=== PATIENT | male | born 1980 | race Caucasian/White ===

== ENCOUNTER 2018-01-29 09:15 | Inpatient (IN) | payer OTHER ==
[2018-01-29 09:38] VITALS: BMI 23.1
[2018-01-29] MEDS ORDERED: FLU VACCINE QUAD 60 MCG/0.5 ML (MDV 18-19) IM ONE (11:05)
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
[2018-01-29] MEDS ORDERED: MENTHOL/PHENOL 1 EACH UD MM PRN (12:59)
[2018-01-29] MEDS ORDERED: MAGNESIUM HYDROX 2400MG/30ML ORAL SUSPENSION 30 ML CUP PO PRN (12:59)
[2018-01-29] MEDS ORDERED: ACETAMINOPHEN 325 MG TABLET (FP) PO PRN (12:59)
[2018-01-29] MEDS ORDERED: P-EPHED 60MG/TRIPROLIDI 2.5MG TABLET PO PRN (12:59)
[2018-01-29] MEDS ORDERED: MAGNESIUM CITRATE 300 ML BOTTLE PO PRN (12:59)
[2018-01-29] MEDS ORDERED: hydrOXYzine PAMOATE 25 MG CAPSULE (FP) PO PRN (12:59)
[2018-01-29] MEDS ORDERED: LOPERAMIDE HCL 2 MG CAPSULE PO PRN (12:59)
[2018-01-29] MEDS ORDERED: chlordiazePOXIDE 5 MG CAPSULE PO PRN (12:59)
[2018-01-29] MEDS ORDERED: MAG HYDROX/AL HYDROX/SIMETH 30 ML UNIT-DOSE CUP PO PRN (12:59)
[2018-01-29] MEDS ORDERED: HYDROCORTISONE 0.5% TOPICAL CREAM 30 GM TUBE TP PRN (13:23)
[2018-01-29] MEDS ORDERED: ALBUTEROL SO4 0.083% IH SOL 2.5 MG/3 ML VIAL.NEB. NEB PRN (13:23)
[2018-01-29 17:47] LABS: URINE APPEARANCE TURBID; URINE COLOR YELLOW; URINE GLUCOSE (UA) NEGATIVE (NEGATIVE); URINE KETONE NEGATIVE (NEGATIVE); URINE LEUK ESTERASE NEGATIVE (NEGATIVE); URINE NITRITE NEGATIVE (NEGATIVE)
[2018-01-29 17:48] LABS: URINE PROTEIN 2+ (NEGATIVE)
[2018-01-29 17:52] LABS: URINE MUCUS MANY
[2018-01-29] MEDS ORDERED: MELATONIN 5 MG TABLETS PO PRN (22:00)
[2018-01-29] MEDS: THIAMINE HCL 100 MG TABLET (FP) PO SCH (22:39)
[2018-01-29] MEDS: NAPROXEN 500 MG TABLET (FP) PO SCH (22:39)
[2018-01-29] MEDS: chlordiazePOXIDE HCL 25 MG CAPSULE PO SCH (22:39)
[2018-01-30] MEDS: chlordiazePOXIDE HCL 25 MG CAPSULE PO SCH ×3 (06:08→17:25)
[2018-01-30] MEDS: PRENATAL VITAMINS W/ FOLIC ACID TABLET (FP) PO SCH (10:06)
[2018-01-30] MEDS: NAPROXEN 500 MG TABLET (FP) PO SCH ×2 (10:06→22:05)
[2018-01-30] MEDS: guaiFENesin/D-METHORPHAN HB 10 ML UNIT-DOSE CUPS PO PRN ×2 (10:07→17:30)
--- NOTE | 2018-01-30 10:51 | PN ---
S CIWA - CIWA Score Nausea/Vomitin-No Nausea/No Vomiting Muscle Tremors: 4-Moderate,w/Arms Extend Anxiety: 4-Mod. Anxious/Guarded Agitation: 4-Moderately Restless Paroxysmal Sweats: 1-Minimal Palms Moist Orientation: 0-Oriented Tacttile Disturbances: 0-None Auditory Disturbances: 0-None Visual Disturbances: 0-None Headache: 0-None Present CIWA-Ar Total Score: 13 BHS Progress Note (SOAP) Subjective: IRRITABILITY, AGITATION,INTERMITTENT SLEEP. Objective: 01/30/18 10:47 Vital Signs 01/30/18 01/30/18 01/30/18 03:30 06:02 09:11 Temperature 97.4 F L 96.7 F L Pulse Rate 57 L 71 Respiratory 16 18 18 Rate Blood Pressure 98/55 L 108/76 Laboratory Tests 01/29/18 01/29/18 12:00 15:30 Urine Color Yellow Urine Appearance Turbid Urine pH 5.0 Ur Specific [place] 1.039 H Urine Protein 2+ H Urine Glucose (UA) Negative Urine Ketones Negative Urine Blood Negative Urine Nitrite Negative Urine Bilirubin 2.0 Urine Urobilinogen 2.0 Ur Leukocyte Esterase Negative Urine WBC (Auto) None Urine RBC (Auto) None Urine Mucus Many HIV 1&2 Antibody Screen Negative HIV P24 Antigen Negative Assessment: 01/30/18 10:47 WITHDRAWAL SX Plan: CONTINUE DETOX INCREASE PO FLUIDS
[2018-01-30 10:54] LABS: HEMATOCRIT 42.7 % (35.4-49); MCH 29.8 pg (25.7-33.7); MCHC 32.9 g/dl (32.0-35.9); MEAN CELL VOLUME 90.8 fl (80-96); MEAN PLT VOLUME 10.9 fl (7.5-11.1); PLATELET COUNT 173 K/MM3 (134-434); RDW 14.7 % (11.9-15.9); WHITE BLOOD COUNT 7.1 K/mm3 (4.0-10.0)
[2018-01-30 11:08] LABS: ALBUMIN 4.1 g/dl (3.4-5.0); ALK PHOS 112 U/L (45-117); ANION GAP 10 MMOL/L (8-16); BILIRUBIN,TOTAL 0.3 mg/dL (0.2-1); BLOOD UREA NITROGEN 11 mg/dL (7-18); CALCIUM 9.4 mg/dL (8.5-10.1); CHLORIDE 99 mmol/L (98-107); CO2 28 mmol/L (21-32); CREATININE 0.9 mg/dL (0.55-1.3); GLUCOSE,RANDOM 97 mg/dL (74-106); SGOT/AST 78 U/L (15-37); SGPT/ALT 63 U/L (13-61); SODIUM 136 mmol/L (136-145); TOT PROT 7.8 g/dl (6.4-8.2)
[2018-01-30] MEDS ORDERED: FLU VACCINE QUAD 60 MCG/0.5 ML (MDV 18-19) IM ONE (12:00)
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
--- NOTE | 2018-01-30 15:52 | EKG ---
Test Reason : Blood Pressure : / mmHG Vent. Rate : 069 BPM Atrial Rate : 069 BPM P-R Int : 118 ms QRS Dur : 084 ms QT Int : 378 ms P-R-T Axes : 033 000 -37 degrees QTc Int : 405 ms NORMAL SINUS RHYTHM NONSPECIFIC ST ABNORMALITY ABNORMAL ECG NO PREVIOUS ECGS AVAILABLE Confirmed by MD Haile, Nikolay ([id number]) on 01/30/2018 3:51:59 PM Referred By: Confirmed By:Nikolay Be MD
[2018-01-30] MEDS ORDERED: PNEUMOC 13-VAL CONJ-DIP CRM/PF 0.5 ML DISP.SYRIN IM ONE (18:00)
[2018-01-30] MEDS ORDERED: PNEUMOCOCCAL 23 VACCINE 0.5 ML VIAL IM ONE (18:00)
[2018-01-30] MEDS: THIAMINE HCL 100 MG TABLET (FP) PO SCH (22:04)
[2018-01-30] MEDS: QUEtiapine FUMARATE 100 MG TABLET (FP) PO SCH (22:05)
[2018-01-30] MEDS: chlordiazePOXIDE HCL 10 MG CAPSULE PO SCH (22:05)
[2018-01-31] MEDS: chlordiazePOXIDE HCL 10 MG CAPSULE PO SCH ×3 (06:32→17:24)
[2018-01-31] MEDS: PRENATAL VITAMINS W/ FOLIC ACID TABLET (FP) PO SCH (10:22)
[2018-01-31] MEDS: NAPROXEN 500 MG TABLET (FP) PO SCH ×2 (10:22→22:40)
--- NOTE | 2018-01-31 14:35 | PN ---
S CIWA - CIWA Score Nausea/Vomitin-Mild Nausea/No Vomiting Muscle Tremors: 4-Moderate,w/Arms Extend Anxiety: 4-Mod. Anxious/Guarded Agitation: 2 Paroxysmal Sweats: 2 Orientation: 0-Oriented Tacttile Disturbances: 0-None Auditory Disturbances: 0-None Visual Disturbances: 0-None Headache: 1-Very Mild CIWA-Ar Total Score: 14 BHS Progress Note (SOAP) Subjective: Anxious, interrupted sleep Objective: 01/31/18 14:33 Last Vital Signs Temp Pulse Resp BP Pulse Ox 98.2 F 80 18 114/80 01/31/18 09:16 01/31/18 13:45 01/31/18 13:45 01/31/18 13:45 Laboratory Tests 01/29/18 01/29/18 01/30/18 12:00 15:30 06:10 WBC 7.1 RBC 4.70 Hgb 14.0 Hct 42.7 MCV 90.8 MCH 29.8 MCHC 32.9 RDW 14.7 Plt Count 173 MPV 10.9 Sodium Potassium Chloride Carbon Dioxide Anion Gap BUN Creatinine Creat Clearance w eGFR Random Glucose Calcium Total Bilirubin AST ALT Alkaline Phosphatase Total Protein Albumin Urine Color Yellow Urine Appearance Turbid Urine pH 5.0 Ur Specific [place] 1.039 H Urine Protein 2+ H Urine Glucose (UA) Negative Urine Ketones Negative Urine Blood Negative Urine Nitrite Negative Urine Bilirubin 2.0 Urine Urobilinogen 2.0 Ur Leukocyte Esterase Negative Urine WBC (Auto) None Urine RBC (Auto) None Urine Mucus Many RPR Titer HIV 1&2 Antibody Screen Negative HIV P24 Antigen Negative 01/30/18 01/30/18 06:10 06:10 WBC RBC Hgb Hct MCV MCH MCHC RDW Plt Count MPV Sodium 136 Potassium 4.0 Chloride 99 Carbon Dioxide 28 Anion Gap 10 BUN 11 Creatinine 0.9 Creat Clearance w eGFR > 60 Random Glucose 97 Calcium 9.4 Total Bilirubin 0.3 AST 78 H ALT 63 H Alkaline Phosphatase 112 Total Protein 7.8 Albumin 4.1 Urine Color Urine Appearance Urine pH Ur Specific [place] Urine Protein Urine Glucose (UA) Urine Ketones Urine Blood Urine Nitrite Urine Bilirubin Urine Urobilinogen Ur Leukocyte Esterase Urine WBC (Auto) Urine RBC (Auto) Urine Mucus RPR Titer Nonreactive HIV 1&2 Antibody Screen HIV P24 Antigen Labs reviewed: abnormal UA Assessment: 01/31/18 14:34 Withdrawal symptoms Noted with abnormal UA Plan: Continue detox Abnormal UA: encouraged PO water hydration, repeat UA
[2018-01-31] MEDS: THIAMINE HCL 100 MG TABLET (FP) PO SCH (22:40)
[2018-01-31] MEDS: QUEtiapine FUMARATE 100 MG TABLET (FP) PO SCH (22:41)
[2018-01-31] MEDS: chlordiazePOXIDE 5 MG CAPSULE PO SCH (22:41)
[2018-02-01] MEDS: chlordiazePOXIDE 5 MG CAPSULE PO SCH (05:38)
[2018-02-01 06:52] VITALS: BP 93/62; PULSE 67; TEMP 97.2
--- NOTE | 2018-02-01 10:33 | DS ---
[facility] Summary Admission Date: 01/29/18 Discharge Date: 02/01/18 - History Present History: Alcohol Dependence, Cannabis Dependence, Cocaine Dependence, Opioid Dependence - Physical Exam Results Vital Signs: Vital Signs Temperature 97.2 F L 02/01/18 06:51 Pulse Rate 67 02/01/18 06:51 Respiratory Rate 18 02/01/18 06:51 Blood Pressure 93/62 02/01/18 06:51 O2 Sat by Pulse Oximetry (%) Pertinent Admission Physical Exam Findings: Withdrawal symptoms Laboratory Tests 01/29/18 01/29/18 01/30/18 12:00 15:30 06:10 WBC 7.1 RBC 4.70 Hgb 14.0 Hct 42.7 MCV 90.8 MCH 29.8 MCHC 32.9 RDW 14.7 Plt Count 173 MPV 10.9 Sodium Potassium Chloride Carbon Dioxide Anion Gap BUN Creatinine Creat Clearance w eGFR Random Glucose Calcium Total Bilirubin AST ALT Alkaline Phosphatase Total Protein Albumin Urine Color Yellow Urine Appearance Turbid Urine pH 5.0 Ur Specific [place] 1.039 H Urine Protein 2+ H Urine Glucose (UA) Negative Urine Ketones Negative Urine Blood Negative Urine Nitrite Negative Urine Bilirubin 2.0 Urine Urobilinogen 2.0 Ur Leukocyte Esterase Negative Urine WBC (Auto) None Urine RBC (Auto) None Urine Mucus Many RPR Titer HIV 1&2 Antibody Screen Negative HIV P24 Antigen Negative 01/30/18 01/30/18 06:10 06:10 WBC RBC Hgb Hct MCV MCH MCHC RDW Plt Count MPV Sodium 136 Potassium 4.0 Chloride 99 Carbon Dioxide 28 Anion Gap 10 BUN 11 Creatinine 0.9 Creat Clearance w eGFR > 60 Random Glucose 97 Calcium 9.4 Total Bilirubin 0.3 AST 78 H ALT 63 H Alkaline Phosphatase 112 Total Protein 7.8 Albumin 4.1 Urine Color Urine Appearance Urine pH Ur Specific [place] Urine Protein Urine Glucose (UA) Urine Ketones Urine Blood Urine Nitrite Urine Bilirubin Urine Urobilinogen Ur Leukocyte Esterase Urine WBC (Auto) Urine RBC (Auto) Urine Mucus RPR Titer Nonreactive HIV 1&2 Antibody Screen HIV P24 Antigen Labs reviewed: abnormal UA (follow up with PCP in 1-2 weeks for abnormal lab result) - Treatment Hospital Course: Detox Protocol Followed, Detoxed Safely, Responded well, Discharged Condition Good - Medication Discharge Medications: Ambulatory Orders Naproxen 500 mg PO BID 01/29/18 - Diagnosis (1) Abnormal finding on urinalysis Status: Acute (2) Alcohol dependence with uncomplicated withdrawal Status: Acute (3) Cannabis dependence, uncomplicated Status: Chronic (4) Cocaine dependence, uncomplicated Status: Chronic (5) Methamphetamine abuse Status: Chronic (6) Nicotine dependence Status: Chronic (7) Substance induced mood disorder Status: Acute (8) Schizophrenia Status: Chronic - AMA Did Patient Leave Against Medical Advice: No (F/U with your PCP within 1-2 weeks )
[2018-02-01 16:42] LABS: URINE APPEARANCE SLCLOUDY; URINE BILIRUBIN NEGATIVE (<2.0 mg/dL); URINE COLOR YELLOW; URINE GLUCOSE (UA) NEGATIVE (NEGATIVE); URINE KETONE NEGATIVE (NEGATIVE); URINE LEUK ESTERASE NEGATIVE (NEGATIVE); URINE NITRITE NEGATIVE (NEGATIVE); URINE PROTEIN NEGATIVE (NEGATIVE); URINE UROBILINOGEN NEGATIVE mg/dL (0.2-1.0)
== END 2018-02-01 09:15 | disposition home or self-care (01) | DRG 773 ==
LOC: YASAS 09:15 → Y3N 13:13
PROC: HZ2ZZZZ Detoxification Services for Substance Abuse Treatment (ICD-10-PCS; principal; 2018-01-29)
DX: F10.230 Alcohol dependence with withdrawal, uncomplicated (principal); F11.23 Opioid dependence with withdrawal; F14.20 Cocaine dependence, uncomplicated; F12.20 Cannabis dependence, uncomplicated; F15.10 Other stimulant abuse, uncomplicated; F17.210 Nicotine dependence, cigarettes, uncomplicated; F20.9 Schizophrenia, unspecified; F19.24 Other psychoactive substance dependence with psychoactive substance-induced mood disorder; F31.9 Bipolar disorder, unspecified; F98.8 Other specified behavioral and emotional disorders with onset usually occurring in childhood and adolescence; R82.90 Unspecified abnormal findings in urine; Z91.19 Patient's noncompliance with other medical treatment and regimen; Z59.0 Homelessness
CPT/HCPCS: 36415; 80053; 81003; 81015; 85027; 86593; 87389; 90688; 90732; 93005; 93010; G0008; G0009

== ENCOUNTER 2018-03-15 08:52 | Inpatient (IN) | payer OTHER ==
[2018-03-15 09:33] VITALS: BMI 24.4
--- NOTE | 2018-03-15 09:38 | HP ---
CIWA Score - CIWA Score Nausea/Vomitin Muscle Tremors: 2 Anxiety: 2 Agitation: 2 Paroxysmal Sweats: 1-Minimal Palms Moist Orientation: 0-Oriented Tacttile Disturbances: 1-Very Mild Itch/Numbness Auditory Disturbances: 1-Very Mild Visual Disturbances: 0-None Headache: 2-Mild CIWA-Ar Total Score: 13 CIWA Score Nausea/Vomitin Muscle Tremors: 2 Anxiety: 2 Agitation: 2 Paroxysmal Sweats: 1-Minimal Palms Moist Orientation: 0-Oriented Tacttile Disturbances: 1-Very Mild Itch/Numbness Auditory Disturbances: 1-Very Mild Visual Disturbances: 0-None Headache: 2-Mild CIWA-Ar Total Score: 13 - Admission Criteria Patient presents the following: CIWA greater than 12, Acute intervention needed for co-occurring med or psych disorder Admission Criteria Met: Admission criteria met Admission ROS BHS - HPI Chief Complaint: i need help to stop drinkong alcohol,cocaine and marijuana Allergies/Adverse Reactions: Allergies Allergy/AdvReac Type Severity Reaction Status Date / Time shrimp Allergy Severe Hives Verified 03/15/18 10:03 house dust mite Allergy Mild Rash Verified 03/15/18 10:03 COTTON Allergy Mild Rash Uncoded 03/15/18 10:03 PARKER Allergy Mild Rash Uncoded 03/15/18 10:03 NKDA Allergy Uncoded 03/15/18 10:04 History of Present Illness: this 37 years old male with alcohol,cocaine and marijuana dependence,seeking detox,withdrawal symptom,last detox 01/29/19 to 02/01/18 syncope nicotine dependence schizophrenia weight loss longest period of sobriety 2 months Exam Limitations: No Limitations - Ebola screening Have you traveled outside of the country in the last 21 days: No Have you had contact with anyone from an Ebola affected area: No - Review of Systems Constitutional: Loss of Appetite, Malaise, Night Sweats, Changes in sleep, Weakness, Unintentional Wgt. Loss EENT: reports: Nose Congestion Respiratory: reports: No Symptoms reported Cardiac: reports: No Symptoms Reported GI: reports: Nausea, Poor Appetite, Abdominal cramping : reports: No Symptoms Reported Musculoskeletal: reports: Back Pain, Muscle Pain Integumentary: reports: Dryness Neuro: reports: Tremors Endocrine: reports: No Symptoms Reported Hematology: reports: No Symptoms Reported Psychiatric: reports: No Sypmtoms Reported, Judgement Intact, Mood/Affect Appropiate, Orientated x3 (schzophrenia) Patient History - Patient Medical History Hx Anemia: No Hx Asthma: No Hx Chronic Obstructive Pulmonary Disease (COPD): No Hx Cancer: No Hx Cardiac Disorders: No Hx Congestive Heart Failure: No Hx Hypertension: No Hx Hypercholesterolemia: No Hx Pacemaker: No HX Cerebrovascular Accident: No Hx Seizures: No Hx Diabetes: No Hx Gastrointestinal Disorders: No Hx Genitourinary Disorders: No Hx Sexually Transmitted Disorders: No Hx Renal Disease (ESRD): No Hx Thyroid Disease: No Hx Human Immunodeficiency Virus (HIV): No (last 01/26 negative) Hx Hepatitis C: No Hx Depression: Yes Hx Suicide Attempt: No Hx Bipolar Disorder: No Hx Schizophrenia: Yes (non compliance,no med) Other Medical History: no suicidal,no homicidal - Patient Surgical History Past Surgical History: Yes Hx Neurologic Surgery: No Hx Cataract Extraction: No Hx Cardiac Surgery: No Hx Lung Surgery: No Hx Breast Surgery: No Hx Breast Biopsy: No Hx Abdominal Surgery: No Hx Appendectomy: No Hx Cholecystectomy: No Hx Genitourinary Surgery: No Hx Section: No Hx Orthopedic Surgery: Yes (RIGHT ANKLE FRACTURE, HEEL, TOES #2,3, AND 5 Fracture. LEFT ELBOW FRACTURE.) Other Surgical History: fx of left elbow at age of 9 years Anesthesia Reaction: No - PPD History Previous Implant?: Yes Documented Results: Negative w/proof Implanted On Prior [facility] Admission?: Yes Date: 01/31/18 Results: 0 mm PPD to be Administered?: No - Smoking Cessation Smoking history: Current every day smoker Have you smoked in the past 12 months: Yes Aproximately how many cigarettes per day: 11 Hx Chewing Tobacco Use: No Initiated information on smoking cessation: Yes 'Breaking Loose' booklet given: 03/15/18 - Substance & Tx. History Hx Alcohol Use: Yes Hx Substance Use: Yes Substance Use Type: Alcohol, Cocaine, Marijuana Hx Substance Use Treatment: Yes ([facility] 01/29/18 to 02/01/18) - Substances Abused Alcohol Route: Oral Frequency: Daily Amount used: 3 pints of vodka/16 ozs of beer Age of first use: 16 Date of Last Use: 03/15/18 Marijuana/Hashish Route: Smoking Frequency: Daily Amount used: 20$ Age of first use: 11 Date of Last Use: 03/14/18 Cocaine Route: Inhalation Frequency: 3-6 times per week Amount used: 50$ Age of first use: 16 Date of Last Use: 03/13/18 Family Disease History - Family Disease History Family Disease History: CA: Grandparent (grandmother brain tumor , GF DM ), Other: Father (AIDS), Mother (mental health issues , AIDS ) Admission Physical Exam [facility] - Vital Signs Vital Signs: Vital Signs Temperature 97.7 F 03/15/18 09:32 Pulse Rate 78 03/15/18 09:32 Respiratory Rate 20 03/15/18 09:32 Blood Pressure 133/84 03/15/18 09:32 O2 Sat by Pulse Oximetry (%) - Physical General Appearance: Yes: Moderate Distress, Tremorous, Irritable, Sweating, Anxious HEENTM: Yes: Normal ENT Inspection, LALO Respiratory: Yes: Within Normal Limits, Lungs Clear, Normal Breath Sounds Neck: Yes: Within Normal Limits, Supple, Trachea in good position Breast: Yes: Within Normal Limits Cardiology: Yes: Within Normal Limits, Regular Rhythm, Regular Rate, S1, S2 Abdominal: Yes: Within Normal Limits, Normal Bowel Sounds, Non Tender, Flat, Soft Genitourinary: Yes: Within Normal Limits Back: Yes: Within Normal Limits, Normal Inspection, Muscle Spasm Extremities: Yes: Within Normal Limits, Tremors Neurological: Yes: merchandiser seasonal II-XII NML intact, Fully Oriented, Alert, Motor Strength 5/5 Integumentary: Yes: Dry Lymphatic: Yes: Within Normal Limits - Diagnostic (1) Alcohol dependence with uncomplicated withdrawal Current Visit: No Status: Acute (2) Cannabis dependence, uncomplicated Current Visit: No Status: Chronic (3) Cocaine dependence, uncomplicated Current Visit: No Status: Chronic (4) Nicotine dependence Current Visit: No Status: Chronic (5) Schizophrenia Current Visit: No Status: Chronic Cleared for Admission S - Detox or Rehab S Level of Care: Medically Managed Detox Regimen/Protocol: Librium BHS Breath Alcohol Content Breath Alcohol Content: 0
[2018-03-15] MEDS ORDERED: LOPERAMIDE HCL 2 MG CAPSULE PO PRN (09:53)
[2018-03-15] MEDS ORDERED: P-EPHED 60MG/TRIPROLIDI 2.5MG TABLET PO PRN (09:53)
[2018-03-15] MEDS ORDERED: ACETAMINOPHEN 325 MG TABLET (FP) PO PRN (09:53)
[2018-03-15] MEDS ORDERED: guaiFENesin/D-METHORPHAN HB 10 ML UNIT-DOSE CUPS PO PRN (09:53)
[2018-03-15] MEDS ORDERED: IBUPROFEN 400 MG TABLET (FP) PO PRN (09:53)
[2018-03-15] MEDS ORDERED: MAGNESIUM CITRATE 300 ML BOTTLE PO PRN (09:53)
[2018-03-15] MEDS ORDERED: MENTHOL/PHENOL 1 EACH UD MM PRN (09:53)
[2018-03-15] MEDS ORDERED: MAG HYDROX/AL HYDROX/SIMETH 30 ML UNIT-DOSE CUP PO PRN (09:53)
[2018-03-15] MEDS ORDERED: hydrOXYzine PAMOATE 25 MG CAPSULE (FP) PO PRN (09:53)
[2018-03-15] MEDS ORDERED: MAGNESIUM HYDROX 2400MG/30ML ORAL SUSPENSION 30 ML CUP PO PRN (09:53)
[2018-03-15] MEDS ORDERED: chlordiazePOXIDE HCL 25 MG CAPSULE PO PRN (09:53)
--- NOTE | 2018-03-15 11:32 | CONSULT ---
[facility] Psychiatric Consult - Data Date of interview: 03/15/18 Admission source: [facility] Identifying data: this 37 years old male with alcohol,cocaine and marijuana dependence,seeking detox,withdrawal symptom,last detox 01/29/19 to 02/01/18. syncope. nicotine dependence. schizophrenia. weight loss. longest period of sobriety 2 months Substance Abuse History: Smoking history: Current every day smoker. Have you smoked in the past 12 months: Yes. Aproximately how many cigarettes per day: 11. Hx Chewing Tobacco Use: No. Initiated information on smoking cessation: Yes. 'Breaking Loose' booklet given: 03/15/18. - Substance & Tx. History. Hx Alcohol Use: Yes. Hx Substance Use: Yes. Substance Use Type: Alcohol, Cocaine , Marijuana. Hx Substance Use Treatment: Yes ([facility] 01/29/18 to 02/01/18). - Substances Abused. Alcohol. Route: Oral. Frequency: Daily. Amount used: 3 pints of vodka/16 ozs of beer. Age of first use: 16. Date of Last Use: 03/15. Marijuana/Hashish. Route: Smoking. Frequency: Daily. Amount used: 20 $. Age of first use: 11. Date of Last Use: 03/14/18. Cocaine. Route: Inhalation. Frequency: 3-6 times per week. Amount used: 50$. Age of first use : 16. Date of Last Use: 03/13/18 Medical History: Weight loss history Psychiatric History: Patient reports to carry Schizophrenia and has been stable on Haldol Decanoate im , once a nmonth, unknown dose, reports prior to injections long time satble on Haldol 5mg po bid. Denies suicidal, homicidal history. Reports mopst recent psychiatric adission a mopnth ago at [facility]. Currently on: [id number] po bid. Cogentin 1mg po bid. Physical/Sexual Abuse/Trauma History: Denies Additional Comment: [id number] po bid. Cogentin 1mg po bid Mental Status Exam - Mental Status Exam Additional Comments: [id number] po bid. Cogentin 1mg po bid Psychiatric Findings - Problem List ([place] 1, 2,3) (1) Abnormal finding on urinalysis Current Visit: No Status: Acute (2) Alcohol dependence with uncomplicated withdrawal Current Visit: No Status: Acute (3) Alcohol withdrawal Current Visit: No Status: Acute Qualifiers: Complication of substance-induced condition: uncomplicated Qualified Code(s ): F10.230 - Alcohol dependence with withdrawal, uncomplicated (4) Non-compliance with treatment Current Visit: No Status: Acute Comment: No psychiatric OPD care. (5) Substance induced mood disorder Current Visit: No Status: Acute (6) Cannabis dependence, uncomplicated Current Visit: No Status: Chronic (7) Cocaine dependence, uncomplicated Current Visit: No Status: Chronic (8) Methamphetamine abuse Current Visit: No Status: Chronic (9) Nicotine dependence Current Visit: No Status: Chronic (10) Schizophrenia Current Visit: No Status: Chronic - Initial Treatment Plan Initial Treatment Plan: [id number] po bid. Cogentin 1mg po bid
--- NOTE | 2018-03-15 12:00 | EKG ---
Test Reason : Blood Pressure : / mmHG Vent. Rate : 072 BPM Atrial Rate : 072 BPM P-R Int : 132 ms QRS Dur : 096 ms QT Int : 392 ms P-R-T Axes : 062 -20 019 degrees QTc Int : 429 ms NORMAL SINUS RHYTHM NORMAL ECG WHEN COMPARED WITH ECG OF 29-JAN-2018 13:51, Confirmed by SAMMI OCHOA MD ([id number]) on 03/15/2018 11:59:52 AM Referred By: Confirmed By:SAMMI OCHOA MD
[2018-03-15] MEDS: chlordiazePOXIDE HCL 25 MG CAPSULE PO SCH ×3 (12:11→23:54)
[2018-03-15] MEDS: PRENATAL VITAMINS W/ FOLIC ACID TABLET (FP) PO SCH (12:11)
[2018-03-15] MEDS ORDERED: HALOPERIDOL 5 MG TABLET (FP) PO PRN (13:34)
[2018-03-15 17:43] LABS: URINE APPEARANCE CLEAR; URINE BILIRUBIN NEGATIVE (<2.0 mg/dL); URINE COLOR STRAW; URINE GLUCOSE (UA) NEGATIVE (NEGATIVE); URINE KETONE NEGATIVE (NEGATIVE); URINE LEUK ESTERASE NEGATIVE (NEGATIVE); URINE NITRITE NEGATIVE (NEGATIVE); URINE PROTEIN NEGATIVE (NEGATIVE); URINE UROBILINOGEN NEGATIVE mg/dL (0.2-1.0)
[2018-03-15] MEDS ORDERED: MELATONIN 5 MG TABLETS PO PRN (22:00)
[2018-03-15] MEDS: BENZTROPINE MESYLATE 1 MG TABLET (FP) PO SCH (23:54)
[2018-03-15] MEDS: THIAMINE HCL 100 MG TABLET (FP) PO SCH (23:54)
[2018-03-15] MEDS: HALOPERIDOL 5 MG TABLET (FP) PO SCH (23:54)
[2018-03-16] MEDS: chlordiazePOXIDE HCL 25 MG CAPSULE PO SCH ×4 (06:03→23:12)
[2018-03-16] MEDS: PRENATAL VITAMINS W/ FOLIC ACID TABLET (FP) PO SCH (10:43)
[2018-03-16] MEDS: HALOPERIDOL 5 MG TABLET (FP) PO SCH ×2 (10:43→23:12)
[2018-03-16] MEDS: BENZTROPINE MESYLATE 1 MG TABLET (FP) PO SCH ×2 (10:43→23:11)
--- NOTE | 2018-03-16 11:17 | PN ---
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 and counselor Objective: 03/16/18 11:18 Vital Signs Temperature 97.5 F L 03/16/18 09:40 Pulse Rate 81 03/16/18 09:40 Respiratory Rate 18 03/16/18 09:40 Blood Pressure 120/71 03/16/18 09:40 O2 Sat by Pulse Oximetry (%) Laboratory Last Values POC Glucometer 91 UNITS (80-120) 03/15/18 16:20 Urine Color Straw 03/15/18 16:00 Urine Appearance Clear 03/15/18 16:00 Urine pH 7.0 (5.0-8.0) D 03/15/18 16:00 Ur Specific [place] 1.006 (1.010-1.035) L 03/15/18 16:00 Urine Protein Negative (NEGATIVE) 03/15/18 16:00 Urine Glucose (UA) Negative (NEGATIVE) 03/15/18 16:00 Urine Ketones Negative (NEGATIVE) 03/15/18 16:00 Urine Blood Negative (NEGATIVE) 03/15/18 16:00 Urine Nitrite Negative (NEGATIVE) 03/15/18 16:00 Urine Bilirubin Negative (<2.0 mg/dL) 03/15/18 16:00 Urine Urobilinogen Negative mg/dL (0.2-1.0) 03/15/18 16:00 Ur Leukocyte Esterase Negative (NEGATIVE) 03/15/18 16:00 lab noted Assessment: 03/16/18 11:19 withdrawal sx Plan: continue detox
[2018-03-16 11:35] LABS: HEMATOCRIT 41.7 % (35.4-49); HEMOGLOBIN 13.4 GM/dL (11.7-16.9); MCH 29.6 pg (25.7-33.7); MCHC 32.1 g/dl (32.0-35.9); MEAN CELL VOLUME 92.2 fl (80-96); MEAN PLT VOLUME 10.6 fl (7.5-11.1); PLATELET COUNT 222 K/MM3 (134-434); RBC 4.52 M/mm3 (4.00-5.60)
[2018-03-16 11:58] LABS: ALBUMIN 4.1 g/dl (3.4-5.0); ALK PHOS 104 U/L (45-117); ANION GAP 7 MMOL/L (8-16); BILIRUBIN,TOTAL 0.5 mg/dL (0.2-1); BLOOD UREA NITROGEN 9 mg/dL (7-18); CALCIUM 9.1 mg/dL (8.5-10.1); CHLORIDE 103 mmol/L (98-107); CO2 27 mmol/L (21-32); CREATININE 0.7 mg/dL (0.55-1.3); GLUCOSE,RANDOM 70 mg/dL (74-106); POTASSIUM 5.2 mmol/L (3.5-5.1); SGOT/AST 64 U/L (15-37); SGPT/ALT 79 U/L (13-61); SODIUM 137 mmol/L (136-145); TOT PROT 7.5 g/dl (6.4-8.2)
[2018-03-16] MEDS: THIAMINE HCL 100 MG TABLET (FP) PO SCH (23:12)
[2018-03-17] MEDS: chlordiazePOXIDE HCL 25 MG CAPSULE PO SCH (05:41)
[2018-03-17 07:58] VITALS: BP 123/67; PULSE 71; TEMP 197.9
[2018-03-17] MEDS ORDERED: chlordiazePOXIDE 5 MG CAPSULE PO SCH (11:00)
--- NOTE | 2018-03-17 12:09 | DS ---
[facility] Detox Discharge Summary Admission Date: 03/15/18 Discharge Date: 03/17/18 - History Present History: Alcohol Dependence Additional Comments: 37 years old male admitted on 03/15/18 for alcohol withdrawal sx insists to leave the detox unit today with his "friends" alert oriented x 3 no acute distress denies suicidal denies homocidal no self destructive behavior aftercare [facility] patient agrees to consider [facility] after "things" settle down - Physical Exam Results Vital Signs: Vital Signs Temperature 197.9 F H 03/17/18 07:58 Pulse Rate 71 03/17/18 07:58 Respiratory Rate 18 03/17/18 07:58 Blood Pressure 123/67 03/17/18 07:58 O2 Sat by Pulse Oximetry (%) Pertinent Admission Physical Exam Findings: alcohol detox Vital Signs Temperature 197.9 F H 03/17/18 07:58 Pulse Rate 71 03/17/18 07:58 Respiratory Rate 18 03/17/18 07:58 Blood Pressure 123/67 03/17/18 07:58 O2 Sat by Pulse Oximetry (%) Laboratory Last Values WBC 6.0 K/mm3 (4.0-10.0) 03/16/18 06:00 RBC 4.52 M/mm3 (4.00-5.60) 03/16/18 06:00 Hgb 13.4 GM/dL (11.7-16.9) 03/16/18 06:00 Hct 41.7 % (35.4-49) 03/16/18 06:00 MCV 92.2 fl (80-96) 03/16/18 06:00 MCH 29.6 pg (25.7-33.7) 03/16/18 06:00 MCHC 32.1 g/dl (32.0-35.9) 03/16/18 06:00 RDW 17.0 % (11.9-15.9) H 03/16/18 06:00 Plt Count 222 K/MM3 (134-434) D 03/16/18 06:00 MPV 10.6 fl (7.5-11.1) 03/16/18 06:00 Sodium 137 mmol/L (136-145) 03/16/18 06:00 Potassium 5.2 mmol/L (3.5-5.1) H 03/16/18 06:00 Chloride 103 mmol/L (98-107) 03/16/18 06:00 Carbon Dioxide 27 mmol/L (21-32) 03/16/18 06:00 Anion Gap 7 MMOL/L (8-16) L 03/16/18 06:00 BUN 9 mg/dL (7-18) 03/16/18 06:00 Creatinine 0.7 mg/dL (0.55-1.3) 03/16/18 06:00 Creat Clearance w eGFR > 60 (>60) 03/16/18 06:00 POC Glucometer 91 UNITS (80-120) 03/15/18 16:20 Random Glucose 70 mg/dL (74-106) L 03/16/18 06:00 Calcium 9.1 mg/dL (8.5-10.1) 03/16/18 06:00 Total Bilirubin 0.5 mg/dL (0.2-1) 03/16/18 06:00 AST 64 U/L (15-37) H 03/16/18 06:00 ALT 79 U/L (13-61) H 03/16/18 06:00 Alkaline Phosphatase 104 U/L (45-117) 03/16/18 06:00 Total Protein 7.5 g/dl (6.4-8.2) 03/16/18 06:00 Albumin 4.1 g/dl (3.4-5.0) 03/16/18 06:00 Urine Color Straw 03/15/18 16:00 Urine Appearance Clear 03/15/18 16:00 Urine pH 7.0 (5.0-8.0) D 03/15/18 16:00 Ur Specific [place] 1.006 (1.010-1.035) L 03/15/18 16:00 Urine Protein Negative (NEGATIVE) 03/15/18 16:00 Urine Glucose (UA) Negative (NEGATIVE) 03/15/18 16:00 Urine Ketones Negative (NEGATIVE) 03/15/18 16:00 Urine Blood Negative (NEGATIVE) 03/15/18 16:00 Urine Nitrite Negative (NEGATIVE) 03/15/18 16:00 Urine Bilirubin Negative (<2.0 mg/dL) 03/15/18 16:00 Urine Urobilinogen Negative mg/dL (0.2-1.0) 03/15/18 16:00 Ur Leukocyte Esterase Negative (NEGATIVE) 03/15/18 16:00 RPR Titer Nonreactive (NONREACTIVE) 03/16/18 06:00 lab noted - Treatment Hospital Course: Detox Protocol Followed, Responded well Patient has Accepted a Rehab Referral to: [facility] - Medication Discharge Medications: Ambulatory Orders Unobtainable 03/15/18 - Diagnosis (1) Alcohol dependence with uncomplicated withdrawal Status: Acute (2) Substance induced mood disorder Status: Suspected (3) Weight loss Status: Acute (4) Nicotine dependence Status: Acute Qualifiers: Nicotine product type: cigarettes Substance use status: in withdrawal Qualified Code(s): F17.213 - Nicotine dependence, cigarettes, with withdrawal - AMA Did Patient Leave Against Medical Advice: Yes
[2018-03-18] MEDS ORDERED: chlordiazePOXIDE HCL 10 MG CAPSULE PO SCH (11:00)
== END 2018-03-17 09:22 | disposition left against medical advice (07) | DRG 770 ==
LOC: YASAS 08:52 → Y6N 09:59
PROC: HZ2ZZZZ Detoxification Services for Substance Abuse Treatment (ICD-10-PCS; principal; 2018-03-15)
DX: F10.230 Alcohol dependence with withdrawal, uncomplicated (principal); F14.20 Cocaine dependence, uncomplicated; F12.20 Cannabis dependence, uncomplicated; F15.10 Other stimulant abuse, uncomplicated; F17.213 Nicotine dependence, cigarettes, with withdrawal; F19.24 Other psychoactive substance dependence with psychoactive substance-induced mood disorder; F20.9 Schizophrenia, unspecified; R82.79 Other abnormal findings on microbiological examination of urine; Z91.14 Patient's other noncompliance with medication regimen; Z91.19 Patient's noncompliance with other medical treatment and regimen; Z91.013 Allergy to seafood; Z91.048 Other nonmedicinal substance allergy status
CPT/HCPCS: 36415; 80053; 81003; 82962; 85027; 86593; 93005; 93010

== ENCOUNTER 2019-06-29 08:23 | Inpatient (IN) | payer OTHER ==
--- NOTE | 2019-06-29 09:06 | BHS.RME ---
Substance Use & Tx History - Substance Use History Alcohol Substance amount: 1-2 beers Frequency of use: Daily Substance route: Oral Date of Last Use: 06/29/19 Cannabis (Synthetic) Substance amount: 1-3 blunts Frequency of use: Daily Substance route: Smoking Date of Last Use: 06/28/19 Cocaine (Crack) Substance amount: 5 bags Frequency of use: Daily Substance route: Smoking Date of Last Use: 06/28/19 Cannabis Substance amount: 2-3 blunts Frequency of use: Daily Substance route: Smoking Date of Last Use: 06/28/19 - Last Treatment Date of last treatment: 2018 Treatment type: Substance Use Disorder (DIANE) Where was last treatment: Rehab Physical/Psych/Mental Status - Behavior General Behavior: Increased activity (restlessness, agitation) Eye Contact: Excessive - Cooperativeness Cooperativeness: Cooperative - Thinking Thought Processes: Tight, Logical, Goal Directed Thought content: Future oriented - Physical Health Problems Is patient presently having any pain?: No Does patient presently have any injuries (include location): No Does patient currently have a fever: No Is patient : No CIWA Nausea/Vomitin-No Nausea/No Vomiting Muscle Tremors: None Anxiety: 1-Mildly Anxious Agitation: 1-Slight > Activity (amounts of alcohol are not large.) Paroxysmal Sweats: No Perspiration Orientation: 0-Oriented Tacttile Disturbances: 0-None Auditory Disturbances: 0-None Visual Disturbances: 0-None Headache: 1-Very Mild CIWA-Ar Total Score: 3
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
[2019-06-29] MEDS ORDERED: MENTHOL/PHENOL 1 EACH UD MM PRN (09:55)
[2019-06-29] MEDS ORDERED: MAGNESIUM HYDROX 2400MG/30ML ORAL SUSPENSION 30 ML CUP PO PRN (09:55)
[2019-06-29] MEDS ORDERED: MAG HYDROX/AL HYDROX/SIMETH 30 ML UNIT-DOSE CUP PO PRN (09:55)
[2019-06-29] MEDS ORDERED: IBUPROFEN 400 MG TABLET (FP) PO PRN (09:55)
[2019-06-29] MEDS ORDERED: guaiFENesin 200 MG/10 ML 10 ML UNIT-DOSE CUPS PO PRN (09:55)
[2019-06-29] MEDS ORDERED: ACETAMINOPHEN 325 MG TABLET (FP) PO PRN (09:55)
[2019-06-29] MEDS ORDERED: P-EPHED 60MG/TRIPROLIDI 2.5MG TABLET PO PRN (09:55)
[2019-06-29] MEDS ORDERED: MAGNESIUM CITRATE 300 ML BOTTLE PO PRN (09:55)
[2019-06-29] MEDS ORDERED: LOPERAMIDE HCL 2 MG CAPSULE PO PRN (09:55)
[2019-06-29 10:10] VITALS: BMI 25.5
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
[2019-06-29] MEDS: PRENATAL VITAMINS W/ FOLIC ACID TABLET (FP) PO SCH (10:51)
[2019-06-29] MEDS: NICOTINE 14 MG/24 HOURS TOPICAL PATCH TD SCH (10:58)
--- NOTE | 2019-06-29 11:12 | PN ---
[facility] Progress Note Note: S: Patient admitted to [facility] for ETOH rehab. Previous admissions reviewed, problem list reviewed, [facility] admission note review. Home medications reviewed. Labs are pending. O: Vital Signs (72 hours) 06/29/19 10:07 Temperature 97.2 F L Pulse Rate 74 Respiratory 18 Rate Blood Pressure 134/97 General: no apparent distress HEENTM: PERRLA, normocephalic NEck: supple MSK: full weight bearing, steady gait Neuro: No cognitive deficits noted A/P: ETOH dependence Continue DIANE treatment Hydration. Maintain safety Psychiatric consult for medication review Will continue to monitor.
[2019-06-29 12:22] LABS: ALBUMIN 4.2 g/dl (3.4-5.0); BILIRUBIN,TOTAL 0.4 mg/dL (0.2-1); BLOOD UREA NITROGEN 12.6 mg/dL (7-18); CALCIUM 9.7 mg/dL (8.5-10.1); CREATININE 0.9 mg/dL (0.55-1.3); POTASSIUM 4.3 mmol/L (3.5-5.1); TOT PROT 7.7 g/dl (6.4-8.2)
[2019-06-29 12:30] LABS: HEMATOCRIT 42.1 % (35.4-49); MCH 31.6 pg (25.7-33.7); MCHC 33.3 g/dl (32.0-35.9); MEAN PLT VOLUME 10.3 fl (7.5-11.1); PLATELET COUNT 211 K/MM3 (134-434); RBC 4.44 M/mm3 (4.00-5.60); RDW 15.8 % (11.9-15.9); WHITE BLOOD COUNT 7.6 K/mm3 (4.0-10.0)
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
[2019-06-29] MEDS ORDERED: HALOPERIDOL DECANOATE 100 MG/ML IM ONE (15:17)
[2019-06-29] MEDS ORDERED: MELATONIN 5 MG TABLETS PO PRN (22:00)
[2019-06-29] MEDS ORDERED: DIVALPROEX SODIUM 500 MG TABLET E.C. PO SCH (22:00)
[2019-06-29] MEDS ORDERED: diphenhydrAMINE HCL 50 MG CAPSULE PO SCH (22:00)
[2019-06-29] MEDS ORDERED: THIAMINE HCL 100 MG TABLET (FP) PO SCH (22:00)
[2019-06-29] MEDS ORDERED: BENZTROPINE MESYLATE 1 MG TABLET PO SCH (22:00)
[2019-06-30 07:14] VITALS: BP 143/96; PULSE 77; TEMP 98.1
[2019-06-30] MEDS: NICOTINE 14 MG/24 HOURS TOPICAL PATCH TD SCH (09:30)
[2019-06-30] MEDS: PRENATAL VITAMINS W/ FOLIC ACID TABLET (FP) PO SCH (09:30)
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
[2019-06-30 10:23] LABS: URINE APPEARANCE CLEAR; URINE BILIRUBIN NEGATIVE (NEGATIVE); URINE COLOR YELLOW; URINE GLUCOSE (UA) NEGATIVE (NEGATIVE); URINE KETONE NEGATIVE (NEGATIVE); URINE LEUK ESTERASE NEGATIVE (NEGATIVE); URINE NITRITE NEGATIVE (NEGATIVE); URINE PROTEIN NEGATIVE (NEGATIVE); URINE UROBILINOGEN 0.2 mg/dL (0.2-1.0)
== END 2019-06-30 09:43 | disposition left against medical advice (07) | DRG 770 ==
LOC: YASAS 08:23 → Y3W 09:55
PROVIDERS: ADMIT Allergy & Immunology; ATTEND Allergy & Immunology
PROC: HZ42ZZZ Group Counseling for Substance Abuse Treatment, Cognitive-Behavioral (ICD-10-PCS; principal; 2019-06-29)
DX: F10.20 Alcohol dependence, uncomplicated (principal); F11.20 Opioid dependence, uncomplicated; F14.20 Cocaine dependence, uncomplicated; F12.20 Cannabis dependence, uncomplicated; F19.20 Other psychoactive substance dependence, uncomplicated; F17.210 Nicotine dependence, cigarettes, uncomplicated; F19.282 Other psychoactive substance dependence with psychoactive substance-induced sleep disorder; F19.24 Other psychoactive substance dependence with psychoactive substance-induced mood disorder; F25.9 Schizoaffective disorder, unspecified; R73.03 Prediabetes; Z91.013 Allergy to seafood; Z88.6 Allergy status to analgesic agent; Z91.048 Other nonmedicinal substance allergy status
CPT/HCPCS: 36415; 80053; 81003; 85027; 86593